=== PATIENT | male | born 1975 ===

== ENCOUNTER 2016-12-21 07:57 | Observation (INO) | payer OTHER ==
[2016-12-21] MEDS ORDERED: Sodium Chloride 0.9% 1,000 ML IV STA (08:19)
[2016-12-21 08:21] VITALS: RESP 18; TEMP 98.7
--- NOTE | 2016-12-21 08:28 | ED PDOC ---
HPI: Abdomen Time Seen by Provider: 12/21/16 08:05 Chief Complaint (Nursing): Abdominal Pain Chief Complaint (Provider): Abdominal Pain History Per: Patient History/Exam Limitations: no limitations Onset/Duration Of Symptoms: Hrs (Since 05:30) Current Symptoms Are (Timing): Still Present Additional Complaint(s): 41 y/o male with a past medical history of diabetes who presents to the emergency department with a sudden right-sided abdominal and flank pain since 05 :30 this morning, 12/21/2016. Reports pain worsens with movement. States he thinks symptoms appeared after an overnight aggravated stress argument with coworker. Denies prior history of similar pain, nausea, vomiting, diarrhea, or fever. PMD: Dr. Ella Santiago MD Past Medical History Reviewed: Historical Data, Nursing Documentation, Vital Signs Vital Signs: Last Vital Signs Temp 98.7 F 12/21/16 14:16 Pulse 82 12/21/16 14:16 Resp 18 12/21/16 14:16 BP 126/85 12/21/16 14:16 Pulse Ox 98 12/21/16 14:16 - Medical History PMH: Diabetes - Surgical History Surgical History: No Surg Hx - Family History Family History: States: Unknown Family Hx - Social History Current smoker - smoking cessation education provided: Yes (Heavy Smoker > 10 Cigarettes Daily) Alcohol: Social Drugs: Denies - Home Medications Home Medications: Ambulatory Orders Medication Instructions Recorded Ibuprofen [Motrin Tab] 600 mg PO Q6 PRN #15 tab 12/21/16 MetFORMIN [glucoPHAGE] 1 tab PO BID 12/21/16 - Allergies Allergies/Adverse Reactions: Allergies Allergy/AdvReac Type Severity Reaction Status Date / Time No Known Allergies Allergy Verified 12/21/16 08:17 Review of Systems ROS Statement: Except As Marked, All Systems Reviewed And Found Negative Constitutional: Negative for: Fever Gastrointestinal: Positive for: Abdominal Pain (Right-sided with right flank pain). Negative for: Nausea, Vomiting, Diarrhea Physical Exam - Reviewed Nursing Documentation Reviewed: Yes Vital Signs Reviewed: Yes - Physical Exam Appears: Positive for: Non-toxic, No Acute Distress Head Exam: Positive for: ATRAUMATIC, NORMAL INSPECTION, NORMOCEPHALIC Skin: Positive for: Normal Color, Warm, Dry Neck: Positive for: Normal, Supple Cardiovascular/Chest: Positive for: Regular Rate, Rhythm. Negative for: Murmur Respiratory: Positive for: Normal Breath Sounds. Negative for: Accessory Muscle Use, Respiratory Distress Gastrointestinal/Abdominal: Positive for: Soft (Obese), Tenderness (Tenderness to the right side of the abdomen), Other (Right flank tenderness). Negative for : Normal Exam Extremity: Positive for: Normal ROM. Negative for: Pedal Edema Neurologic/Psych: Positive for: Alert, Oriented (x3) - Laboratory Results Result Diagrams: 12/21/16 08:35 12/21/16 08:35 - ECG O2 Sat by Pulse Oximetry: 100 (RA) Pulse Ox Interpretation: Normal Medical Decision Making Medical Decision Making: Time: 08:18 Initial impression: Abdominal Pain. Cholelithyasis vs. Renal Colic Initial plan: --CMP --Lipase --CBC w/ diff --Toradol 30 mg IV --Sodium Chloride 1L IV --Urinalysis --Abdomen US --Reevaluation Time: 09:27 --Abdomen US FINDINGS: LIVER: Measures 23.7 cm. There is diffuse increased echogenicity of the liver parenchyma. No mass. No intrahepatic bile duct dilatation. GALLBLADDER: No gallstones, wall thickening or pericholecystic fluid. There is sludge within the gallbladder. COMMON BILE DUCT: Measures 5.4 mm. No stones. No dilatation. PANCREAS: Obscured by bowel gas. RIGHT KIDNEY: Measures 12.6cm. Normal echogenicity. No calculus, mass, or hydronephrosis. LEFT KIDNEY: Measures 11.3cm. Normal echogenicity. No calculus, mass, or hydronephrosis. SPLEEN: Normal in size and contour. No mass. AORTA: No aneurysmal dilatation. IVC: Unremarkable. OTHER FINDINGS: None. IMPRESSION: Moderate hepatomegaly. Diffuse increased echogenicity in the liver may reflect hepatic steatosis however parenchymal infectious/ inflammatory etiologies cannot be entirely excluded. Clinical and laboratory correlation is advised. Time: 09:40 --Unrevealing abdominal US. --Order for Abd Pelvis PO & IV Contrast CT Scan to rule out renal colic and atypical appendicitis. --Iohexol 50 ml PO --Admit to hospital routine: Ed Obs for abdominal pain. --All further documentation can be viewed in ED obs section of chart. Scribe Attestation: Documented by Rosi Aggarwal, acting as a scribe for Rich Medel MD. Provider Scribe Attestation: All medical record entries made by the Anitha were at my direction and personally dictated by me. I have reviewed the chart and agree that the record accurately reflects my personal performance of the history, physical exam, medical decision making, and the department course for this patient. I have also personally directed, reviewed, and agree with the discharge instructions and disposition. ED OBSERVATION Discharge: Yes Date of observation admission: 12/21/16 Time of observation admission: 09:41 - Observation admission statement Patient is being placed in observation because:: Abdominal pain - Goals of Observation Goals of observation are:: Pain resolution, CT results, and serial abdominal exams. - Progress Note Progress Note: 12/21/16 11:11 --Patient tolerating PO & IV Contrast for ordered CT of the abd & pelvis for further testing. --Resting comfortably. 12/21/16 12:41 --Patient is resting comfortably and pending completion of CT. 12/21/16 13:26 --Abd & Pelvis CT FINDINGS: LOWER THORAX: Mild bibasilar atelectasis right greater than left. Lung bases pneumothorax otherwise clear. No effusion or basilar pneumothorax. LIVER: Liver is markedly enlarged measuring approximately 28.3 cm in CC dimension. Moderate to significant diffuse fatty hepatic infiltration. . No obvious hepatic mass collection or calcification. Portal and splenic veins are opacified. GALLBLADDER AND BILE DUCTS: Gallbladder is physiologically distended. No evidence of intraluminal gallbladder calculi. PANCREAS: The pancreas appears grossly unremarkable without mass collection or calcification. No significant pancreatic ductal dilatation. SPLEEN: Spleen exhibits normal size and attenuation pattern. ADRENALS: There are no adrenal lesions seen. KIDNEYS AND URETERS: Kidneys demonstrate symmetric nephrograms. No evidence of nephrolithiasis or hydronephrosis. BLADDER: The urinary bladder is incompletely distended which may account for slight thick -walled appearance. Muscular hypertrophy may contribute. Possibility of cystitis not excluded. REPRODUCTIVE: Prostate gland is unremarkable. APPENDIX: Normal-appearing appendix of best seen on axial image number one hundred twenty- six- 139. No periappendiceal inflammatory changes. BOWEL: Evaluation of the bowel is limited due to incomplete opacification. . Stomach is incompletely distended which may account for slight thick-walled appearance. Gastritis not excluded. Visualized loops of small bowel exhibit normal contour and caliber. No evidence of acute mechanical small bowel obstruction. PERITONEUM: No gross free intraperitoneal air or fluid. Tiny fat containing umbilical hernia. LYMPH NODES: Few small nonspecific retroperitoneal lymph nodes are present. VASCULATURE: Unremarkable. No aortic aneurysm. BONES: Very minor multilevel degenerative spondylosis of the lumbar and lower thoracic spine. . No acute compression fractures. OTHER FINDINGS: None. IMPRESSION: Marked hepatomegaly with moderate fatty hepatic infiltration. There are a few small lymph nodes seen in the right mid to lower abdomen; rule out mesenteric adenitis. Few small nonspecific lymph nodes also seen in the retroperitoneum Urinary bladder is incompletely distended which presumably accounts for slight thick-walled appearance. Muscular hypertrophy may contribute. The possibility of a cystitis not excluded Note these findings were discussed with Dr. Medel at approximately 1:24 p.m. with written down and read back verification. 12/21/16 13:59 --Patients symptoms had resolved. --Discussed with radiologist of CT scan and informed patient of enlarged liver and need for follow-up with gastroenterology. --Recommended weight loss as well as smoking sensation discussed. Disposition - Clinical Impression Clinical Impression: Abdominal pain, Hepatomegaly - Patient ED Disposition Is Patient to be Admitted: No Counseled Patient/Family Regarding: Studies Performed, Diagnosis, Need For Followup, Rx Given - Disposition Disposition: Routine/Home Disposition Time: 13:30 Condition: STABLE
[2016-12-21 08:40] LABS: BASO # 0.1 K/uL (0.0-0.2); BASO % 0.6 % (0.0-2.0); EOS # 0.2 K/uL (0.0-0.7); EOS % 2.6 % (0.0-4.0); LYMPH # 2.5 K/uL (1.0-4.3); LYMPH % 26.6 % (20.0-40.0); MEAN CELL VOLUME 86.8 fl (80.0-94.0); MEAN CORPUSCULAR HEMOGLOBIN 29.7 pg (27.0-31.0); MEAN CORPUSCULAR HGB CONC 34.2 g/dL (33.0-37.0); MEAN PLATELET VOLUME 9.3 fl (7.2-11.7); MONO # 0.9 K/uL (0.0-0.8); MONO % 9.6 % (0.0-10.0); NEUT # 5.7 K/uL (1.8-7.0); NEUT % 60.6 % (50.0-75.0); NRBC % 0.1 % (0.0-0.0); RED CELL DISTRIBUTION WIDTH 13.7 % (11.5-14.5); WHITE BLOOD COUNT 9.4 K/uL (4.8-10.8)
[2016-12-21 08:47] LABS: RBC URINE 3 /hpf (0-3); URINE BACTERIA RARE (<OCC); URINE BILIRUBIN NEGATIVE (NEGATIVE); URINE BLOOD NEGATIVE (NEGATIVE); URINE COLOR YELLOW (YELLOW); URINE GLUCOSE (UA) NEG (Normal); URINE KETONE NEGATIVE (NEGATIVE); URINE LEUKOCYTE ESTERASE NEG Leu/uL (Negative); URINE PROTEIN 30 mg/dL (NEGATIVE); URINE UROBILINOGEN 0.2-1.0 mg/dL (0.2-1.0); WBC URINE 3 /hpf (0-5)
[2016-12-21 08:50] LABS: ALB/GLOB RATIO 1.4 (1.0-2.1); ALKALINE PHOSPHATASE 57 U/L (38-126); ALT/SGPT 208 U/L (21-72); AST/SGOT 85 U/L (17-59); BILIRUBIN,TOTAL 0.5 mg/dl (0.2-1.3); BLOOD UREA NITROGEN 13 mg/dl (9-20); CALCIUM 8.7 mg/dL (8.4-10.2); CARBON DIOXIDE 25 mmol/L (22-30); CHLORIDE 104 mmol/L (98-107); GFR AFRICAN-AMERICAN > 60; GLUCOSE,RANDOM 97 mg/dL (75-110); LIPASE 87 U/L (23-300); POTASSIUM 4.1 MMOL/L (3.6-5.0); SODIUM 140 mmol/l (132-148); TOTAL PROTEIN 7.3 G/DL (6.3-8.2)
--- NOTE | 2016-12-21 09:28 | US ---
HISTORY: R flank and R abd pain COMPARISON: None. TECHNIQUE: Grayscale imaging was performed. FINDINGS: LIVER: Measures 23.7 cm. There is diffuse increased echogenicity of the liver parenchyma. No mass. No intrahepatic bile duct dilatation. GALLBLADDER: No gallstones, wall thickening or pericholecystic fluid. There is sludge within the gallbladder. COMMON BILE DUCT: Measures 5.4 mm. No stones. No dilatation. PANCREAS: Obscured by bowel gas. RIGHT KIDNEY: Measures 12.6cm. Normal echogenicity. No calculus, mass, or hydronephrosis. LEFT KIDNEY: Measures 11.3cm. Normal echogenicity. No calculus, mass, or hydronephrosis. SPLEEN: Normal in size and contour. No mass. AORTA: No aneurysmal dilatation. IVC: Unremarkable. OTHER FINDINGS: None. IMPRESSION: Moderate hepatomegaly. Diffuse increased echogenicity in the liver may reflect hepatic steatosis however parenchymal infectious/ inflammatory etiologies cannot be entirely excluded. Clinical and laboratory correlation is advised.
[2016-12-21] MEDS ORDERED: Iohexol 240 (50 ml) PO ONE (09:40)
[2016-12-21] MEDS ORDERED: Iohexol 240 (50 ml) ONE (10:53)
[2016-12-21] MEDS ORDERED: Iohexol 300 50 ML ONE (11:56)
--- NOTE | 2016-12-21 13:27 | CT ---
PROCEDURE: CT Abdomen and Pelvis with Oral contrast. CT abdomen pelvis dated 12/21/2016 HISTORY: Right-sided abdominal pain. COMPARISON: No prior study available for comparison however correlation made with abdominal ultrasound earlier same day TECHNIQUE: Contiguous axial images of the abdomen and pelvis performed following following oral and intravenous injection of approximately 95 cc Omnipaque 300 contrast, 2 dimensional sagittal and coronal reformats generated. Radiation dose: Total exam DLP = 1148.79 mGy-cm. This CT exam was performed using one or more of the following dose reduction techniques: Automated exposure control, adjustment of the mA and/or kV according to patient size, and/or use of iterative reconstruction technique. FINDINGS: LOWER THORAX: Mild bibasilar atelectasis right greater than left. Lung bases pneumothorax otherwise clear. No effusion or basilar pneumothorax. LIVER: Liver is markedly enlarged measuring approximately 28.3 cm in CC dimension. Moderate to significant diffuse fatty hepatic infiltration. . No obvious hepatic mass collection or calcification. Portal and splenic veins are opacified. GALLBLADDER AND BILE DUCTS: Gallbladder is physiologically distended. No evidence of intraluminal gallbladder calculi. PANCREAS: The pancreas appears grossly unremarkable without mass collection or calcification. No significant pancreatic ductal dilatation. SPLEEN: Spleen exhibits normal size and attenuation pattern. ADRENALS: There are no adrenal lesions seen. KIDNEYS AND URETERS: Kidneys demonstrate symmetric nephrograms. No evidence of nephrolithiasis or hydronephrosis. BLADDER: The urinary bladder is incompletely distended which may account for slight thick-walled appearance. Muscular hypertrophy may contribute. Possibility of cystitis not excluded. REPRODUCTIVE: Prostate gland is unremarkable. APPENDIX: Normal-appearing appendix of best seen on axial image number one hundred twenty-six- 139. No periappendiceal inflammatory changes. BOWEL: Evaluation of the bowel is limited due to incomplete opacification. . Stomach is incompletely distended which may account for slight thick-walled appearance. Gastritis not excluded. Visualized loops of small bowel exhibit normal contour and caliber. No evidence of acute mechanical small bowel obstruction. PERITONEUM: No gross free intraperitoneal air or fluid. Tiny fat containing umbilical hernia. LYMPH NODES: Few small nonspecific retroperitoneal lymph nodes are present. VASCULATURE: Unremarkable. No aortic aneurysm. BONES: Very minor multilevel degenerative spondylosis of the lumbar and lower thoracic spine. . No acute compression fractures. OTHER FINDINGS: None. IMPRESSION: Marked hepatomegaly with moderate fatty hepatic infiltration. There are a few small lymph nodes seen in the right mid to lower abdomen; rule out mesenteric adenitis. Few small nonspecific lymph nodes also seen in the retroperitoneum Urinary bladder is incompletely distended which presumably accounts for slight thick-walled appearance. Muscular hypertrophy may contribute. The possibility of a cystitis not excluded Note these findings were discussed with Dr. Medel at approximately 1:24 p.m. with written down and read back verification.
[2016-12-21 14:19] VITALS: BP 126/85; PULSE 82
[2016-12-28 11:42] VITALS: O2SAT 100
== END 2016-12-21 14:35 | disposition home or self-care (01) ==
LOC: H.ER 07:57 → H.EROBSV 09:41
PROVIDERS: ADMIT Emergency Medicine; ATTEND Emergency Medicine
DX: R10.31 Right lower quadrant pain (principal); E11.9 Type 2 diabetes mellitus without complications; F17.210 Nicotine dependence, cigarettes, uncomplicated; R16.0 Hepatomegaly, not elsewhere classified
CPT/HCPCS: 74177; 76700; 80053; 81003; 83690; 85025; 96360; 99282; G0378; J1885; J7040; Q9966; Q9967

== ENCOUNTER 2018-05-06 11:51 | Emergency (ER) | payer MEDICAID, OTHER ==
[2018-05-06 12:34] VITALS: O2SAT 98
--- NOTE | 2018-05-06 14:17 | ED PDOC ---
HPI: Male Pain Time Seen by Provider: 05/06/18 13:35 Chief Complaint (Nursing): Male Genitourinary Chief Complaint (Provider): Abdominal Pain History Per: Patient History/Exam Limitations: no limitations Onset/Duration Of Symptoms: Days (x3), Intermittent Episodes Current Symptoms Are (Timing): Still Present Additional Complaint(s): Patient is a 43 y/o male with a PMHx of DM who presents to the ED for evaluation of bilateral abdominal pain ongoing for the past three days. Patient complains of intermittent cramping and states he vomited this morning after consuming Yi food last night. The patient denies fever, diarrhea, or any urinary symptoms. Of note, patient reports his daughter is experiencing the same symptoms. PCP: Dr. Ella Santiago Past Medical History Reviewed: Historical Data, Nursing Documentation, Vital Signs Vital Signs: Last Vital Signs Temp 98.5 F 05/06/18 12:31 Pulse 100 H 05/06/18 12:31 Resp 18 05/06/18 12:31 BP 116/76 05/06/18 12:31 Pulse Ox 98 05/06/18 12:31 - Medical History PMH: No Chronic Diseases, Diabetes - Surgical History Surgical History: No Surg Hx - Family History Family History: States: Unknown Family Hx - Social History Current smoker - smoking cessation education provided: No Alcohol: None Drugs: Denies - Home Medications Home Medications: Ambulatory Orders Medication Instructions Recorded Ibuprofen [Motrin Tab] 600 mg PO Q6 PRN #15 tab 12/21/16 MetFORMIN [glucoPHAGE] 1 tab PO BID 12/21/16 - Allergies Allergies/Adverse Reactions: Allergies Allergy/AdvReac Type Severity Reaction Status Date / Time No Known Allergies Allergy Verified 12/21/16 08:17 Review of Systems ROS Statement: Except As Marked, All Systems Reviewed And Found Negative Constitutional: Negative for: Fever Gastrointestinal: Positive for: Vomiting, Abdominal Pain (Bilateral). Negative for: Diarrhea Genitourinary Male: Negative for: Dysuria, Hematuria Physical Exam - Reviewed Nursing Documentation Reviewed: Yes Vital Signs Reviewed: Yes - Physical Exam Appears: Positive for: No Acute Distress (Morbidly Obese) Head Exam: Positive for: ATRAUMATIC, NORMAL INSPECTION, NORMOCEPHALIC Skin: Positive for: Normal Color Eye Exam: Positive for: Normal appearance ENT: Positive for: Other (Mucous Membranes Dry) Neck: Positive for: Normal Cardiovascular/Chest: Positive for: Regular Rate, Rhythm Respiratory: Positive for: Normal Breath Sounds Gastrointestinal/Abdominal: Positive for: Soft, Tenderness (Generalized, LUQ). Negative for: Guarding, Rebound Extremity: Positive for: Normal ROM (Upper/Lower) Neurologic/Psych: Positive for: Alert - Laboratory Results Result Diagrams: 05/06/18 14:32 05/06/18 14:32 - ECG O2 Sat by Pulse Oximetry: 98 (RA) Pulse Ox Interpretation: Normal Medical Decision Making Medical Decision Making: Time: 1335 Impression: Gastroenteritis, Viral Syndrome, or Colitis. Plan: CT Abd & Pelvis IV Contrast EKG CMP Urine Dipstick CBC PTT Prothrombin Time Bentyl 20 mg PO Glucose, Blood, POC (x2) UA Time: 1700 Patient is being endorsed from provider to Dr. Andrews. Scribe Attestation: Documented by Lito Martinez, acting as a scribe for Katya Pendleton MD. Provider Scribe Attestation: All medical record entries made by the Scribe were at my direction and personally dictated by me. I have reviewed the chart and agree that the record accurately reflects my personal performance of the history, physical exam, medical decision making, and the department course for this patient. I have also personally directed, reviewed, and agree with the discharge instructions and disposition. Disposition - Patient ED Disposition Is Patient to be Admitted: Transfer of Care - Disposition Disposition: Transfer of Care Forms: Xpreso (Italian) Patient Signed Over To: Kacie Andrews
[2018-05-06 14:42] LABS: SQUAMOUS EPITHIAL 1 /hpf (0-5); URINE BILIRUBIN NEGATIVE (NEGATIVE); URINE BLOOD NEGATIVE (NEGATIVE); URINE CLARITY SLIGHTY-CLOUDY (Clear); URINE COLOR YELLOW (YELLOW); URINE GLUCOSE (UA) NEG (NEGATIVE); URINE LEUKOCYTE ESTERASE NEG Leu/uL (Negative); URINE PROTEIN NEGATIVE (NEGATIVE); URINE UROBILINOGEN 0.2-1.0 mg/dL (0.2-1.0)
[2018-05-06 14:43] LABS: BASO # 0.1 K/uL (0.0-0.2); BASO % 0.8 % (0.0-2.0); EOS # 0.2 K/uL (0.0-0.7); EOS % 1.6 % (0.0-4.0); HEMOGLOBIN 14.9 g/dL (12.0-18.0); LYMPH # 1.6 K/uL (1.0-4.3); LYMPH % 14.9 % (20.0-40.0); MEAN CELL VOLUME 89.7 fl (80.0-94.0); MEAN CORPUSCULAR HEMOGLOBIN 29.8 pg (27.0-31.0); MEAN CORPUSCULAR HGB CONC 33.2 g/dL (33.0-37.0); MEAN PLATELET VOLUME 9.1 fl (7.2-11.7); MONO # 0.6 K/uL (0.0-0.8); MONO % 5.8 % (0.0-10.0); NEUT # 8.2 K/uL (1.8-7.0); NEUT % 76.9 % (50.0-75.0); NRBC % 0.1 % (0.0-0.0); RBC 4.99 Mil/uL (4.40-5.90); RED CELL DISTRIBUTION WIDTH 13.4 % (11.5-14.5); WHITE BLOOD COUNT 10.7 K/uL (4.8-10.8)
[2018-05-06 14:45] LABS: ALB/GLOB RATIO 1.2 (1.0-2.1); ALBUMIN 4.1 g/dL (3.5-5.0); ALT/SGPT 93 U/L (21-72); AST/SGOT 51 U/L (17-59); BLOOD UREA NITROGEN 16 mg/dl (9-20); CALCIUM 8.6 mg/dL (8.4-10.2); GFR NON-AFRICAN AMERICAN > 60; PROTHROMBIN TIME 11.9 Seconds (9.8-13.1)
[2018-05-06 14:48] LABS: PARTIAL THROMBOPLASTIN TIME 28.1 Seconds (25.6-37.1)
[2018-05-06] MEDS ORDERED: Iohexol 300 100 ML IJ ONE (16:38)
[2018-05-06] MEDS ORDERED: Sodium Chloride 0.9% 100 ML ONE (16:38)
--- NOTE | 2018-05-06 16:49 | CARD ---
APPROVED REPORT Date of service: 05/06/2018 EKG Measurement Heart [id number] <Conclusion> Normal sinus rhythm Minimal voltage criteria for LVH, may be normal variant Borderline ECG
--- NOTE | 2018-05-06 17:16 | ED PDOC ---
- Laboratory Results Result Diagrams: 05/06/18 14:32 05/06/18 14:32 Lab Results: PT 11.9 Seconds (9.8-13.1) 05/06/18 14:32 INR 1.0 05/06/18 14:32 APTT 28.1 Seconds (25.6-37.1) 05/06/18 14:32 Total Bilirubin 0.5 mg/dl (0.2-1.3) 05/06/18 14:32 AST 51 U/L (17-59) 05/06/18 14:32 ALT 93 U/L (21-72) H D 05/06/18 14:32 Alkaline Phosphatase 76 U/L (38-126) 05/06/18 14:32 Total Protein 7.4 G/DL (6.3-8.2) 05/06/18 14:32 Albumin 4.1 g/dL (3.5-5.0) 05/06/18 14:32 Globulin 3.4 gm/dL (2.2-3.9) 05/06/18 14:32 Albumin/Globulin Ratio 1.2 (1.0-2.1) 05/06/18 14:32 Urine Color Yellow (YELLOW) 05/06/18 14:32 Urine Clarity Slighty-cloudy (Clear) 05/06/18 14:32 Urine pH 5.0 (5.0-8.0) 05/06/18 14:32 Ur Specific Orestes 1.027 (1.003-1.030) 05/06/18 14:32 Urine Protein Negative mg/dL (NEGATIVE) 05/06/18 14:32 Urine Glucose (UA) Neg mg/dL (NEGATIVE) 05/06/18 14:32 Urine Ketones Negative mg/dL (NEGATIVE) 05/06/18 14:32 Urine Blood Negative (NEGATIVE) 05/06/18 14:32 Urine Nitrate Negative (NEGATIVE) 05/06/18 14:32 Urine Bilirubin Negative (NEGATIVE) 05/06/18 14:32 Urine Urobilinogen 0.2-1.0 mg/dL (0.2-1.0) 05/06/18 14:32 Ur Leukocyte Esterase Neg Tonja/uL (Negative) 05/06/18 14:32 Urine RBC (Auto) 1 /hpf (0-3) 05/06/18 14:32 Urine Microscopic WBC 1 /hpf (0-5) 05/06/18 14:32 Ur Squamous Epith Cells 1 /hpf (0-5) 05/06/18 14:32 - ECG O2 Sat by Pulse Oximetry: 98 (RA) Medical Decision Making Medical Decision Making: Time: 1700 Patient is being endorsed to provider from Dr. Pendleton. Pending CT Scan. Time: 171 FINDINGS: LOWER THORAX: Unremarkable. LIVER: Hepatomegaly, hepatic steatosis. Patent portal venous system is satisfactorily visualized without evidence portal vein thrombosis or the stigmata of portal hypertension. GALLBLADDER AND BILE DUCTS: Unremarkable. PANCREAS: Unremarkable. No gross lesion or ductal dilatation. SPLEEN: Unremarkable. ADRENALS: Unremarkable. No mass. KIDNEYS AND URETERS: Unremarkable. No hydronephrosis. No solid mass. Incidental finding(s): Accessory left renal artery common normal variant. VASCULATURE: Unremarkable. No aortic aneurysm. No atherosclerotic calcification or mural plaque present. BOWEL: Unremarkable. No obstruction. No gross mural thickening. APPENDIX: Normal appendix. PERITONEUM: Unremarkable. No free fluid. No free air. LYMPH NODES: Unremarkable. No enlarged lymph nodes. BLADDER: Unremarkable. REPRODUCTIVE: Unremarkable. BONES: No acute fracture. OTHER FINDINGS: None. IMPRESSION: No acute findings related to/ accounting for the clinical presentation. Additional benign and/or incidental findings described above. No significant interval change compared to the prior examination(s). Time: 1727 On reevaluation patient is stable. Discussed with patient findings. Followup with PMD this week. Scribe Attestation: Documented by Lito Martinez, acting as a scribe for Kacie Andrews MD. Provider Scribe Attestation: All medical record entries made by the Scribe were at my direction and personally dictated by me. I have reviewed the chart and agree that the record accurately reflects my personal performance of the history, physical exam, medical decision making, and the department course for this patient. I have also personally directed, reviewed, and agree with the discharge instructions and disposition. Disposition - Clinical Impression Clinical Impression: Abdominal pain - POA Present On Arrival: None - Disposition Disposition: Routine/Home Disposition Time: 17:20 Condition: STABLE Additional Instructions: PLEASE FOLLOWUP WITH YOUR DOCTOR IN 2-3 DAYS FOR REEVALUATION BLAND DIET WITH PLENTY OF HYDRATING FLUIDS. Prescriptions: Dicyclomine [Bentyl] 20 mg PO QID PRN #20 tab PRN Reason: abdominal pain RX: MetFORMIN [glucoPHAGE] 1 tab PO BID #30 tab Instructions: Acute Abdomen (Belly Pain), Adult (DC)
--- NOTE | 2018-05-06 17:17 | CT ---
Date of service: 05/06/2018 PROCEDURE: CT Abdomen and Pelvis with contrast HISTORY: Gen abd pain, vomiting COMPARISON: 12/21/2016 abdominal ultrasound 12/21/2016 CT abdomen and pelvis TECHNIQUE: Intravenous contrast dose: 100 cc Omnipaque 300. Radiation dose: Total exam DLP = 1339.17 mGy-cm. This CT exam was performed using one or more of the following dose reduction techniques: Automated exposure control, adjustment of the mA and/or kV according to patient size, and/or use of iterative reconstruction technique. FINDINGS: LOWER THORAX: Unremarkable. LIVER: Hepatomegaly, hepatic steatosis. Patent portal venous system is satisfactorily visualized without evidence portal vein thrombosis or the stigmata of portal hypertension. GALLBLADDER AND BILE DUCTS: Unremarkable. PANCREAS: Unremarkable. No gross lesion or ductal dilatation. SPLEEN: Unremarkable. ADRENALS: Unremarkable. No mass. KIDNEYS AND URETERS: Unremarkable. No hydronephrosis. No solid mass. Incidental finding(s): Accessory left renal artery common normal variant. VASCULATURE: Unremarkable. No aortic aneurysm. No atherosclerotic calcification or mural plaque present. BOWEL: Unremarkable. No obstruction. No gross mural thickening. APPENDIX: Normal appendix. PERITONEUM: Unremarkable. No free fluid. No free air. LYMPH NODES: Unremarkable. No enlarged lymph nodes. BLADDER: Unremarkable. REPRODUCTIVE: Unremarkable. BONES: No acute fracture. OTHER FINDINGS: None. IMPRESSION: No acute findings related to/ accounting for the clinical presentation. Additional benign and/or incidental findings described above. No significant interval change compared to the prior examination(s).
[2018-05-06 17:52] VITALS: BP 126/78; PULSE 78; RESP 19; TEMP 97.6
== END 2018-05-06 17:52 | disposition home or self-care (01) ==
LOC: H.ER 11:51
DX: K52.9 Noninfective gastroenteritis and colitis, unspecified (principal); B34.9 Viral infection, unspecified; E11.9 Type 2 diabetes mellitus without complications; Z79.84 Long term (current) use of oral hypoglycemic drugs
CPT/HCPCS: 74177; 80053; 81003; 82948; 85025; 85610; 85730; 93005; 99283; Q9967

== ENCOUNTER 2018-08-24 20:24 | Emergency (ER) | payer SELFPAY ==
[2018-08-24 20:31] VITALS: BP 137/83; PULSE 81; RESP 18; TEMP 98.2; O2SAT 99; BMI 48.2
--- NOTE | 2018-08-24 20:43 | ED PDOC ---
HPI: Eye Injury/Pain Time Seen by Provider: 08/24/18 20:33 Chief Complaint (Nursing): Eye Problem Chief Complaint (Provider): Eye Problem History Per: Patient History/Exam Limitations: no limitations Onset/Duration Of Symptoms: Days (x4) Current Symptoms Are (Timing): Still Present Additional Complaint(s): Patient is a 43 y/o male with a PMHx of diabetes who presents to the ED for evaluation of tearing and itchiness to the left eye for the past four days. Patient noted yesterday there was some blood and redness to the left eye. Currently, patient denies pain, discharge, trauma, contact use, and visual changes. PCP: None Provided Past Medical History Reviewed: Historical Data, Nursing Documentation, Vital Signs Vital Signs: Last Vital Signs Temp 98.2 F 08/24/18 20:31 Pulse 81 08/24/18 20:31 Resp 18 08/24/18 20:31 BP 137/83 08/24/18 20:31 Pulse Ox 99 08/24/18 20:31 - Medical History PMH: Diabetes - Surgical History Surgical History: No Surg Hx - Family History Family History: States: Unknown Family Hx - Home Medications Home Medications: Ambulatory Orders Medication Instructions Recorded Ibuprofen [Motrin Tab] 600 mg PO Q6 PRN #15 tab 12/21/16 Dicyclomine [Bentyl] 20 mg PO QID PRN #20 tab 05/06/18 MetFORMIN [glucoPHAGE] 1 tab PO BID #30 tab 05/06/18 Ciprofloxacin 0.3% [Ciloxan 0.3% 1 - 2 drop LEFTEYE Q4H #1 bottle 08/24/18 Ophth SOLMaddy] - Allergies Allergies/Adverse Reactions: Allergies Allergy/AdvReac Type Severity Reaction Status Date / Time No Known Allergies Allergy Verified 08/24/18 20:34 Review of Systems ROS Statement: Except As Marked, All Systems Reviewed And Found Negative Eyes: Positive for: Redness (left), Other (itchy). Negative for: Pain (or discharge), Vision Change Physical Exam - Reviewed Nursing Documentation Reviewed: Yes Vital Signs Reviewed: Yes - Physical Exam Appears: Positive for: No Acute Distress Head Exam: Positive for: ATRAUMATIC, NORMAL INSPECTION, NORMOCEPHALIC Skin: Positive for: Normal Color, Warm, DRY Eye Exam: Positive for: EOMI, PERRL, Conjunctival injection (left eye: lower half, moderate), Other (subconjunctival hemorrhage of left eye). Negative for: Nystagmus (or hyphema), Periorbital swelling, Periorbital tenderness ENT: Positive for: Normal ENT Inspection Neck: Positive for: Normal, Painless ROM, Supple Cardiovascular/Chest: Positive for: Regular Rate, Rhythm. Negative for: Murmur Respiratory: Positive for: Normal Breath Sounds. Negative for: Respiratory Distress Neurological/Psych: Positive for: Alert, Oriented (x3) - ECG O2 Sat by Pulse Oximetry: 99 (RA) Pulse Ox Interpretation: Normal Medical Decision Making Medical Decision Making: Time: 2029 Patient advised to followup with Dr. Post for further evaluation. Scribe Attestation: Documented by Lito Martinez, acting as a scribe Samina Jones PA-C. Provider Scribe Attestation: All medical record entries made by the Scribe were at my direction and personally dictated by me. I have reviewed the chart and agree that the record accurately reflects my personal performance of the history, physical exam, medical decision making, and the department course for this patient. I have also personally directed, reviewed, and agree with the discharge instructions and disposition. Disposition - Clinical Impression Clinical Impression: Subconjunctival hemorrhage - Patient ED Disposition Is Patient to be Admitted: No - Disposition Referrals: Henry Post MD [Staff Provider] - [facility] [Outside] Disposition: Routine/Home Disposition Time: 20:41 Condition: STABLE Additional Instructions: FOLLOW UP WITH [facility] OR DR. POST (EYE DOCTOR) FOR FURTHER EVALUATION RETURN TO ED IMMEDIATELY IF SYMPTOMS WORSEN RYAN DEXTER, thank you for letting us take care of you today. Your provider gianluca Chavez MD and you were treated for LT EYE REDNESS. The emergency medical care you received today was directed at your acute symptoms. If you were prescribed any medication, please fill it and take as directed. It may take several days for your symptoms to resolve. Return to the Emergency Department if your symptoms worsen, do not improve, or if you have any other problems. Please contact your doctor or call one of the physicians/clinics you have been referred to that are listed on the Patient Visit Information form that is included in your discharge packet. Bring any paperwork you were given at discharge with you along with any medications you are taking to your follow up visit. Our treatment cannot replace ongoing medical care by a primary care provider outside of the emergency department. Thank you for allowing the [facility] team to be part of your care today. If you had an X-Ray or CT scan: A Radiologist will review the ED reading if any change in treatment is needed we will contact you. If you had a blood, urine, or wound culture: It will take several days for the results, if any change in treatment is needed we will contact you. If you had an STI test: It will take 48 hours for the results. Please call after 1 week if you have not heard back. Prescriptions: Ciprofloxacin 0.3% [Ciloxan 0.3% Ophth SOLN] 1 - 2 drop LEFTEYE Q4H #1 bottle Instructions: Subconjunctival Hemorrhage Forms: [employer] (Turkmen) Print Language: UKRAINIAN
== END 2018-08-24 21:13 | disposition home or self-care (01) ==
LOC: H.ER 20:24
DX: H11.30 Conjunctival hemorrhage, unspecified eye (principal); E11.9 Type 2 diabetes mellitus without complications; Z79.84 Long term (current) use of oral hypoglycemic drugs